=== PATIENT | female | born 1995 | race African-American/Black ===

== ENCOUNTER → 2018-09-16 | Outpatient (CLI) | payer OTHER | LOC: M RAD 10:56 | DX: Z34.82 Encounter for supervision of other normal pregnancy, second trimester (principal); Z3A.20 20 weeks gestation of pregnancy | CPT/HCPCS: 76811 ==

== ENCOUNTER 2019-01-09 23:49 | Inpatient (IN) | payer OTHER ==
[~2019-01-09] VITALS: Ht 170.2 cm; Wt 76.4 kg
[2019-01-10] VITALS (22 sets, daily range): BP systolic 101–139; BP diastolic 55–84
[2019-01-10] MEDS ORDERED: LACTATED RINGER'S 1000 ML IV STA (00:25)
[2019-01-10] MEDS ORDERED: PENICILLIN G POTASSIUM IV 5 MU in D5W MINI-BAG PLUS 100 ML IV STA (00:25)
[2019-01-10] MEDS ORDERED: LR 1,000 ML IV SCH (00:25)
[2019-01-10] MEDS ORDERED: BETAMETHASONE SOLUSPAN 6MG/ML INJ 5ML (J0702) IM SCH (00:30)
--- NOTE | 2019-01-10 00:41 | HPEPDOC ---
Obstetrical History & Physical General Date of Admission Jan 10, 2019 at 00:24 History of Present Illness 23 yo at 36+4 weeks gestation by LMP of [id number] c/w 9+4 week US on presents to L&D with regular, painful contractions. She denies any vaginal bleeding or leakage of fluid. She endorses excellent movement. is uncomplicated. Chief Complaint: Contractions, pre-term Information Provided By: Patient Age: 23 : 2 Term: 1 Pre-term: 0 Abortions: 0 Livin Care Care: Good Care Dating Final EDC: Feb 03, 2019 Final EDC for Daily Update: Feb 03, 2019 Final EDC by: LMP LMP: Apr 29, 2018 1st Trimester Date: Jul 03, 2018 Antepartum Course Diagnos(e)s uncomplicated Past Medical History Past Obstetrical History : Past Obstetrical History: Multigravida ( at 39 weeks in 2016. Pelvis proven to 6lbs 12oz.) Type of Delivery: Spontaneous Vaginal Del. Complications: No [employer] History: Abnormal Pap (Multiple abnormal paps with colposcopies) Past Medical History Medical History Denies Surgical History: Other (right oophorectomy during in 2016) Family History Significant Family History: No pertinent family hx Family History Noncontributory Social History Marital Status: Family situation: Spouse/partner home Psychosocial History: No pertinent psych hx * Smoker: non-smoker Alcohol: Denies Drugs: denies Imunizations Tdap status: current Influenza Status: current Physical Examination Physical Examination GENERAL: Alert and oriented times three. ABDOMEN: Gravid and non-tender to touch. FETUS: Is vertex (VTX) by sterile vaginal examination (SVE) EXTREMITIES: No edema. Bedside TAUS - Viable SIUP in cephalic presentation. Laboratory Data 24H LABS Laboratory Tests 2 01/10/19 00:29: Serology Scanned Report Hepatitis B Testing Urine Culture: No Growth Pertinent Laboratoy Data Blood Type: B+ RBC Antibody Screen: Negative HIV: Negative Hepatitis B: Negative Hepatitis C: Unknown Rapid Plasma Reagin: Nonreactive Rubella: Immune Varicella: Immune Chlamydia/Gonorrhea: Negative Group B Streptococcus: Negative Quad Screen Test: Unknown Cystic Fibrosis: Unknown Glucose Tolerance Test: 122 Anatomy Ultrasound Placenta Location: Anterior Normal Anatomy: Yes Placenta Previa: No Steroid Therapy Steroid Therapy: No Vaginal Examination Dilation: 5 cm Effacement: 80% Station: -1 Cervical Consistency: Soft Cervical Position: Posterior Presentation: Cephalic presentation Position: Vertex (occiput) Assessment Heart Rate (FHR): 130 Variability: Moderate Accelerations: Positive Decelerations: None Tocometer Contractions: Yes Frequency: every 1-3 min. Duration: greater than 60 seconds Strength: palpated as moderate Assessment/Plan Assessment 23 yo at 36+4 weeks gestation presented to L&D in labor. Plan Admit for expectant management of labor. Apply IV fluids. Penicillin for GBS unknown, gestation. BTMZ X2. First dose now. Clear liquids. Patient may have epidural if desired. NICU notified. Anticipate . DO JAVIER Schmidt CHRISTOPHER J. DO Jan 10, 2019 00:41
[2019-01-10 01:07] LABS: HEMATOCRIT 34.9 % (36.0-47.0); HEMOGLOBIN 11.7 g/dl (12.0-15.5); MEAN CORPUSCULAR HGB CONC 33.5 g/dl (32.0-36.5); MEAN CORPUSCULAR VOLUME 95.4 fl (80.0-96.0); PLATELET COUNT, AUTOMATED 214 10^3/uL (150-450); RED BLOOD COUNT 3.66 10^6/uL (4.00-5.40); WHITE BLOOD COUNT 9.1 10^3/uL (4.0-10.0)
[2019-01-10] MEDS ORDERED: FENTANYL 2MCG/ML ROPIVACAINE 0.2% IN 0.9% NACL 100ML IVBAG As Ordered ONE (01:16)
[2019-01-10] MEDS ORDERED: ePHEDrine SULFATE 25 MG/5 ML(5MG/ML) SYRINGE IV PRN (04:00)
[2019-01-10] MEDS ORDERED: LACTATED RINGER'S 1000 ML IV PRN (04:00)
[2019-01-10] MEDS ORDERED: REFRIGERATOR IV KEYS XX PRN (04:00)
[2019-01-10] MEDS ORDERED: EPIDURAL/PCA KEYS XX PRN (04:00)
[2019-01-10] MEDS ORDERED: ONDANSETRON 4MG/2ML VIAL (J2405) IV PRN ×2 (04:00→06:30)
[2019-01-10] MEDS ORDERED: EPIDURAL COMMENT XX SCH (04:00)
[2019-01-10] MEDS ORDERED: FENTANYL/ROPIVACAINE/NACL BAG 100 ML EPIDURAL SCH (04:00)
[2019-01-10] MEDS ORDERED: NALOXONE INJ 0.4 MG/1 ML VIAL (J2310) IV PRN (04:00)
[2019-01-10] MEDS ORDERED: diphenhydrAMINE INJ 50MG/ML VIAL (J1200) IV PRN (04:00)
[2019-01-10] MEDS ORDERED: PENICILLIN G POTASSIUM IV 2.5 MU in APPROPRIATE DILUENT 1 EA IV SCH (05:30)
[2019-01-10] MEDS ORDERED: OXYTOCIN 30 UNITS IN 0.9% NaCl 500ML IV BAG (J2590) As Ordered ONE (06:07)
[2019-01-10] MEDS ORDERED: OXYTOCIN DRIP 30 UNITS in APPROPRIATE DILUENT 1 EA IV SCH (06:28)
[2019-01-10] MEDS ORDERED: DOCUSATE SODIUM 100 MG CAP PO PRN (06:30)
[2019-01-10] MEDS ORDERED: RHOGAM 300 MCG (1500 IU) INJ (J2790) IM SCH (06:30)
[2019-01-10] MEDS ORDERED: MEASLES,MUMPS,RUBELLA VACCINE INJ (MMR-II) (90707) SC SCH (06:30)
[2019-01-10] MEDS ORDERED: DIBUCAINE 1% OINTMENT 30GM TOP PRN (06:30)
--- NOTE | 2019-01-10 06:38 | DNPDOC ---
[facility] Delivery Note Delivery Note DATE OF DELIVERY: 10Jan2019 at ~0615 PREDELIVERY DIAGNOSIS: 36+4 weeks gestation and labor POST DELIVERY DIAGNOSIS: Delivered. PROCEDURE: Spontaneous vaginal delivery. ROAD CROSSING GUARD: Dr. Lord ANESTHESIA: Epidural. ESTIMATED BLOOD LOSS: 300 mL. FINDINGS: 6 pound 0 ounce (2710 grams) female infant, Score 8/9, nuchal cord times X1. DELIVERY SUMMARY: Presented to room for assessment. Ms. Coats has received two doses of PCN for GBS UNK and one dose of BTMZ. Cervical exam revealed C/C/+3 with a bulging bag of water. FHR Cat II with late decels. The bed was broken down and she was prepped for delivery. AROM was performed productive of clear fluid. She started pushing. After two pushes her delivered. Presentation was ESTELITA with restitution to LOT. There was a nuchal cord that was delivered through and reduced manually. The right anterior shoulder delivered easily followed by the remainder of the body. The was dried and stimulated on the field and a bulb suction was used. The cried vigorously and was placed on the maternal abdomen. The three vessel cord was then clamped and cut by the FOB. 3rd stage was completed with gentle traction on the cord and it was productive of an intact placenta. Pitocin was then administered IV bolus. There was initial uterine atony that required bimanual massage and lower uterine segment sweeping. The uterus then firmed. Inspection of the vagina, perineum, and cervix revealed no lacerations. Sponge and instrument counts were correct X3. Mother stable when I left the room. DO JAVIER Schmidt CHRISTOPHER J. DO Jan 10, 2019 06:38
[2019-01-10] MEDS: IBUPROFEN 800 MG TAB PO PRN ×2 (08:42→18:38)
[2019-01-10] MEDS ORDERED: ceFAZolin SOD 1 GM in D5W MINI-BAG PLUS 50 ML IV ONE (09:00)
[2019-01-10] MEDS: PRENATAL VITAMINS CHEWABLE TABLET PO SCH (10:01)
[2019-01-10] MEDS: ACETAMINOPHEN 500 MG TAB PO PRN (13:40)
[2019-01-11 06:28] VITALS: BP 121/58
[2019-01-11] MEDS: PRENATAL VITAMINS CHEWABLE TABLET PO SCH (08:01)
[2019-01-11] MEDS: IBUPROFEN 800 MG TAB PO PRN ×2 (08:02→19:45)
--- NOTE | 2019-01-11 08:07 | IPNPDOC ---
Text Note Date of Service The patient was seen on 01/11/19. NOTE PPD1 States feeling well, pain controlled with prescribed meds. Baby bonding and feeding well. No heavy VB. Lochia slowing. Ambulatory. Tolerating PO without issues. Voiding spont. No CP/LP/SOB. VSSAF NAD A&O LE no C/C/E Ut at U-2, firm a/p: Doing well. Cont routine care. D/C tomorrow AM (GBS unk-tx'd, but early term status). Sessions MD TREVIZO,Dillon, I+O VS, Dillon I+O Vital Signs Date Time Temp Pulse Resp B/P (MAP) Pulse Ox O2 Delivery O2 Flow Rate FiO2 01/11/19 06:28 98.5 80 18 121/58 (79) I&O- Last 24 Hours up to 6 AM 01/11/19 06:00 Intake Total 1050 ml Output Total 1100 ml Balance -50 ml SESSIONS,ALEKSANDER Flood MD Jan 11, 2019 08:07
[2019-01-11 18:00] VITALS: BP 110/69
[2019-01-12 06:18] VITALS: BP 114/74
[2019-01-12] MEDS: ACETAMINOPHEN 500 MG TAB PO PRN (09:04)
[2019-01-12] MEDS: PRENATAL VITAMINS CHEWABLE TABLET PO SCH (09:04)
--- NOTE | 2019-01-12 09:07 | IPNPDOC ---
Progress Note Date of Service: Jan 12, 2019 Day#: 2 Progress Note PPD 2 SUBJECT: Edmund is a 23yo [id number] s/p uncomplicated after presenting in PTL at 36w5d, doing well day # 2. She has been ambulating, voiding spontaneously without issue and tolerating regular diet. Bottle feeding without issue. Reports lochia is like a normal period. Pain well controlled. No f/c/n/v/CP/SOB. OBJECTIVE: VITAL SIGNS: Within normal limits, afebrile. Alert and oriented times three. Abdomen: Fundus firm at U-2. Soft, NTTP. Extremities: no pain with palpation of calves ASSESSMENT: Edmund is a 23yo [id number] s/p uncomplicated after presenting i n PTL at 36w5d, doing well day # 2. Vitals within normal limits, afebrile, hemodynamically stable with no evidence of infection. PLAN: 1. Discharge to home today. 2. Tylenol and Motrin for pain. 3. Encourage ambulation. 4. asked about contraception she states she wants a hysterectomy- can discuss further at her 6wk visit, recommended she make her PP visit with an MD 5. Routine PP visit in 6 weeks in clinic. 6. Discussed return precautions at length. Dr. Sylvia Barrow MD VS, I&O, 24H, Fishbone Vital Signs/I&O Vital Signs Date Time Temp Pulse Resp B/P (MAP) Pulse Ox O2 Delivery O2 Flow Rate FiO2 01/12/19 06:18 98.1 80 18 114/74 (87) Sylvia Barrow MD Jan 12, 2019 09:07
[2019-01-12] MEDS ORDERED: NUPE1OIN2 TOP (09:48)
[2019-01-12] MEDS ORDERED: PRENTAB9 PO (09:48)
[2019-01-12] MEDS ORDERED: MAPA500T2 PO (09:48)
[2019-01-12] MEDS ORDERED: IBUP-1114 PO (09:48)
== END 2019-01-12 15:40 | disposition home or self-care (01) | DRG 807 ==
LOC: M LDO 23:49 → M LDI 01-10 00:24 → M OBS 01-10 09:52
PROVIDERS: ADMIT Obstetrics & Gynecology; ATTEND Obstetrics & Gynecology
PROC: 10E0XZZ Delivery of Products of Conception, External Approach (ICD-10-PCS; principal; 2019-01-10)
PROC: 10907ZC Drainage of Amniotic Fluid, Therapeutic from Products of Conception, Via Natural or Artificial Opening (ICD-10-PCS; 2019-01-10)
DX: O60.14X0 Preterm labor third trimester with preterm delivery third trimester, not applicable or unspecified (principal); Z37.0 Single live birth; Z3A.36 36 weeks gestation of pregnancy; O69.82X0 Labor and delivery complicated by other cord entanglement, without compression, not applicable or unspecified; O75.89 Other specified complications of labor and delivery

== ENCOUNTER 2019-02-19 12:38 | Emergency (ER) | payer OTHER ==
[~2019-02-19] VITALS: Ht 170.2 cm; Wt 67.7 kg
[~2019-02-19 12:38] MED LIST: IBUP-1114 PO; MAPA500T2 PO; NUPE1OIN2 TOP; PRENTAB9 PO
[2019-02-19] MEDS ORDERED: NS 1,000 ML IV ONE (13:15)
[2019-02-19 13:38] LABS: BASO % 0.6 % (0.0-1.0); EOS # 0.2 10^3/uL (0.0-0.50); EOS % 4.5 % (0.0-3.0); HEMATOCRIT 45.4 % (36.0-47.0); HEMOGLOBIN 14.8 g/dl (12.0-15.5); LYMPH # 2.6 10^3/uL (1.5-6.5); LYMPH % 51.6 % (24.0-44.0); MEAN CORPUSCULAR HEMOGLOBIN 31.5 pg (27.0-33.0); MEAN CORPUSCULAR HGB CONC 32.6 g/dl (32.0-36.5); MEAN CORPUSCULAR VOLUME 96.6 fl (80.0-96.0); MONO # 0.4 10^3/uL (0.0-0.8); MONO % 8.1 % (0.0-5.0); NEUTROPHILS # 1.8 10^3/uL (1.8-7.7); NEUTROPHILS % 35.2 % (36.0-66.0); PLATELET COUNT, AUTOMATED 274 10^3/uL (150-450); WHITE BLOOD COUNT 5.1 10^3/uL (4.0-10.0)
[2019-02-19 13:59] LABS: HCG, SERUM QUALITATIVE NEGATIVE (NEGATIVE)
[2019-02-19 14:02] LABS: BLOOD UREA NITROGEN 13 MG/DL (7-18); CALCIUM LEVEL 9.4 MG/DL (8.5-10.1); CARBON DIOXIDE LEVEL 31 MEQ/L (21-32); CHLORIDE LEVEL 105 MEQ/L (98-107); CREATININE FOR GFR 0.92 MG/DL (0.55-1.30); GLOMERULAR FILTRATION RATE > 60.0 (>60); GLUCOSE, FASTING 59 MG/DL (70-100); POTASSIUM SERUM 4.5 MEQ/L (3.5-5.1); SODIUM LEVEL 139 MEQ/L (136-145)
[2019-02-19 14:34] VITALS: BP 107/64
--- NOTE | 2019-02-19 14:41 | REP ---
PELVIC ULTRASOUND: Real-time sonographic evaluation of the pelvis is performed utilizing transabdominal and endovaginal technique. The bladder measures 2.8 x 5 x 5 x 7.7 cm. The uterus measures 8.9 x 4.3 x 4.9 cm. Endometrial thickness is 4 mm. There is no evidence of retained products of conception. A tiny amount of cervical fluid is seen. Small amount of free fluid is seen in the posterior cul-de-sac. The ovaries are normal in size and echotexture, right ovary measuring 2.2 x 1.7 x 1.9 cm and left ovary 3.5 x 1.3 x 3.5 cm. There is no torsion, resistive index of the right ovary 0.68 and left ovary 0.47. IMPRESSION: Tiny amount of cervical fluid. Small amount of free fluid in the cul-de-sac. No evidence of retained products of conception. Electronically Signed by Lew Lorenzana MD 02/19/2019 04:09 P
== END 2019-02-19 14:35 | disposition home or self-care (01) ==
LOC: M ED 12:38
DX: N93.9 Abnormal uterine and vaginal bleeding, unspecified (principal)

== ENCOUNTER → 2019-05-07 | Outpatient (REF) | payer OTHER ==
[2019-05-08 16:45] LABS: CHLAMYDIA DNA AMPLIFICATION NEGATIVE (NEGATIVE); GC DNA AMPLIFICATION NEGATIVE (NEGATIVE)
== END ==
LOC: M LAB REF 13:16
PROVIDERS: ATTEND Obstetrics & Gynecology
DX: Z11.3 Encounter for screening for infections with a predominantly sexual mode of transmission (principal)
CPT/HCPCS: 87491; 87591; G0123

== ENCOUNTER → 2019-06-23 | Outpatient (REF) | payer OTHER | LOC: M LAB REF 19:17 | PROVIDERS: ATTEND Obstetrics & Gynecology | DX: N93.9 Abnormal uterine and vaginal bleeding, unspecified (principal) ==

== ENCOUNTER 2019-07-25 09:08 | Day surgery (SDC) | payer OTHER ==
[~2019-07-25] VITALS: Ht 170.2 cm; Wt 61.7 kg
[2019-07-25] VITALS (7 sets, daily range): BP systolic 93–114; BP diastolic 52–82
[~2019-07-25 09:08] MED LIST changes: +LIDOCAINE 1% MDV 20ML VIAL SQ PRN; +LR 1,000 ML IV ONE; +ceFAZolin SOD 2 GM in IV 1 EA IV ONE
[2019-07-25 09:29] LABS: HEMATOCRIT 44.5 % (36.0-47.0); HEMOGLOBIN 14.8 g/dl (12.0-15.5); MEAN CORPUSCULAR HEMOGLOBIN 32.2 pg (27.0-33.0); MEAN CORPUSCULAR HGB CONC 33.3 g/dl (32.0-36.5); MEAN CORPUSCULAR VOLUME 96.9 fl (80.0-96.0); PLATELET COUNT, AUTOMATED 288 10^3/uL (150-450); RED BLOOD COUNT 4.59 10^6/uL (4.00-5.40); WHITE BLOOD COUNT 4.6 10^3/uL (4.0-10.0)
[2019-07-25 09:49] LABS: HCG, SERUM QUALITATIVE NEGATIVE (NEGATIVE)
[2019-07-25] MEDS ORDERED: BUPIVACAINE HCL 0.25% 30 ML VIAL As Ordered ONE (10:14)
[2019-07-25] MEDS ORDERED: METHYLENE BLUE 0.5% (5MG/ML) 10 ML AMP (PROVAYBLUE)(Q9968 PER 1MG) As Ordered ONE (10:15)
[2019-07-25] MEDS ORDERED: LIDOCAINE 2% INJ 100 MG/5 ML SDV (FOR ANES.) As Ordered ONE (11:03)
[2019-07-25] MEDS ORDERED: KETOROLAC 60 MG/2 ML VIAL (J1885) As Ordered ONE (11:03)
[2019-07-25] MEDS ORDERED: ROCURONIUM BROMIDE 50 MG/5 ML VIAL As Ordered ONE (11:03)
[2019-07-25] MEDS ORDERED: HYDROmorphone HCL 2 MG/ML 1ML VIAL (J1170) As Ordered ONE (11:03)
[2019-07-25] MEDS ORDERED: fentaNYL 100 MCG/2 ML INJECTION (J3010) As Ordered ONE ×2 (11:03→13:24)
[2019-07-25] MEDS ORDERED: PHENYLephrine HCL 500 MCG/5 ML (100MCG/ML) SYRINGE (J2370) As Ordered ONE (11:03)
[2019-07-25] MEDS ORDERED: MIDAZOLAM INJ 2 MG/2 ML VIAL (J2250) As Ordered ONE (11:03)
[2019-07-25] MEDS ORDERED: SUGAMMADEX SODIUM 500 MG/5 ML VIAL (BRIDION) As Ordered ONE (11:03)
[2019-07-25] MEDS ORDERED: dexameTHASONE 4 MG/ML 1ML VIAL (J1100) As Ordered ONE (11:03)
[2019-07-25] MEDS ORDERED: PROPOFOL 200 MG/20 ML VIAL As Ordered ONE (11:03)
[2019-07-25] MEDS ORDERED: ONDANSETRON 4MG/2ML VIAL (J2405) As Ordered ONE (11:30)
[2019-07-25] MEDS ORDERED: ONDANSETRON 4MG/2ML VIAL (J2405) IV PRN ×2 (13:15→14:00)
[2019-07-25] MEDS ORDERED: PERCOCET 5MG/325MG TAB PO PRN ×2 (13:15→14:00)
[2019-07-25] MEDS ORDERED: PROMETHAZINE INJ 25 MG/ML VIAL (J2550) IV PRN (13:15)
[2019-07-25] MEDS: fentaNYL 100 MCG/2 ML INJECTION (J3010) IV PRN ×2 (13:27→13:32)
[2019-07-25] MEDS ORDERED: LR 1,000 ML IV SCH (13:45)
[2019-07-25] MEDS ORDERED: METOCLOPRAMIDE INJ 10MG/2ML VIAL (J2765) IV PRN (14:00)
[2019-07-25] MEDS: LR 1,000 ML IV SCH ×2 (14:58→18:20)
[2019-07-25] MEDS: KETOROLAC 30 MG/ML VIAL (J1885) IV SCH (17:51)
[2019-07-25] MEDS: DOCUSATE SODIUM 100 MG CAP PO SCH (20:16)
[2019-07-26] VITALS: BP 104/59
[2019-07-26] MEDS: KETOROLAC 30 MG/ML VIAL (J1885) IV SCH ×2 (00:18→05:14)
[2019-07-26] MEDS: LR 1,000 ML IV SCH (02:30)
[2019-07-26 04:00] VITALS: BP 100/58
[2019-07-26 07:01] LABS: BASO % 0.2 % (0.0-1.0); EOS % 0.2 % (0.0-3.0); HEMATOCRIT 35.4 % (36.0-47.0); LYMPH # 1.3 10^3/uL (1.5-5.0); LYMPH % 11.2 % (24.0-44.0); MEAN CORPUSCULAR HEMOGLOBIN 33.2 pg (27.0-33.0); MEAN CORPUSCULAR HGB CONC 34.2 g/dl (32.0-36.5); MONO # 0.9 10^3/uL (0.0-0.8); MONO % 7.2 % (0.0-5.0); NEUTROPHILS # 9.6 10^3/uL (1.5-8.5); NEUTROPHILS % 80.7 % (36.0-66.0); PLATELET COUNT, AUTOMATED 219 10^3/uL (150-450); RED BLOOD COUNT 3.65 10^6/uL (4.00-5.40); WHITE BLOOD COUNT 11.9 10^3/uL (4.0-10.0)
[2019-07-26 07:05] LABS: HEMOGLOBIN 12.1 g/dl (12.0-15.5)
[2019-07-26 08:00] VITALS: BP 105/56
[2019-07-26] MEDS: DOCUSATE SODIUM 100 MG CAP PO SCH (08:28)
[2019-07-26] MEDS: PERCOCET 5MG/325MG TAB PO PRN ×2 (08:28→12:38)
[2019-07-26] MEDS ORDERED: PERCOCET PO (08:44)
[2019-07-26] MEDS ORDERED: COLA100C5 PO (08:44)
[2019-07-26] MEDS ORDERED: IBUP80TA PO (08:44)
[2019-07-26] MEDS ORDERED: IBUPROFEN 800 MG TAB PO SCH (14:00)
== END 2019-07-26 13:55 | disposition home or self-care (01) ==
LOC: M SDC 09:08 → M PED 14:20 → M SDC 07-26 13:55
PROVIDERS: ATTEND Obstetrics & Gynecology
DX: N93.9 Abnormal uterine and vaginal bleeding, unspecified (principal); N85.00 Endometrial hyperplasia, unspecified; L30.9 Dermatitis, unspecified
CPT/HCPCS: 36415; 58571; 84703; 85025; 85027; 86850; 88307; 96374; 96375; J0690; J1100; J1170; J1885; J2250; J2370; J2405; J3010; Q9968